=== PATIENT | female | born 2000 | race Caucasian/White ===

== ENCOUNTER 2022-06-30 15:12 | Emergency (ER) | payer MEDICAID, OTHER ==
[~2022-06-30] VITALS: Ht 149.9 cm; Wt 91.0 kg
[2022-06-30 15:18] VITALS: BP 113/68
[2022-06-30 16:05] LABS: BASOPHILS % 0.7 % (0.0-2.0); EOSINOPHILS % 1.4 % (0.0-5.0); HEMATOCRIT. 40.3 % (36.0-48.0); HEMOGLOBIN. 13.6 g/dL (12.0-16.0); LYMPHOCYTES % 33.4 % (20.0-50.0); MEAN CORPUSCULAR HEMOGLOBIN 29.9 pg (28.0-32.0); MEAN CORPUSCULAR VOLUME 88.3 fL (81.0-99.0); MEAN PLATELET VOLUME 8.8 fl (7.4-10.4); MONOCYTES % 7.5 % (2.0-8.0); PLATELET 274 x1000/uL (130-400); RED BLOOD CELL COUNT 4.56 mill/uL (4.2-5.4); RED CELL DISTRIBUTION WIDTH 13.3 % (11.6-14.6)
[2022-06-30 16:12] LABS: CHLORIDE 103 mEq/L (98-107)
[2022-06-30 16:29] LABS: HCG SCREEN POSITIVE
[2022-07-02] MEDS ORDERED: IBUP-2029 MT (02:22)
== END 2022-07-01 02:30 | disposition home or self-care (01) ==
LOC: ER 15:12
DX: O26.891 Other specified pregnancy related conditions, first trimester (principal); Z3A.01 Less than 8 weeks gestation of pregnancy
CPT/HCPCS: 36415; 76801; 80053; 84702; 84703; 85025; 86900; 99284

== ENCOUNTER 2022-07-01 20:29 | Emergency (ER) | payer MEDICAID ==
[~2022-07-01] VITALS: Ht 149.9 cm; Wt 200.0 kg
[2022-07-01 20:39] VITALS: BP 103/66
[2022-07-01 23:00] LABS: BASOPHILS % 0.6 % (0.0-2.0); HEMATOCRIT. 40.4 % (36.0-48.0); LYMPHOCYTES % 22.4 % (20.0-50.0); MEAN CORPUSCULAR HEMOGLOBIN 30.5 pg (28.0-32.0); MEAN PLATELET VOLUME 8.7 fl (7.4-10.4); PLATELET 295 x1000/uL (130-400); RED BLOOD CELL COUNT 4.59 mill/uL (4.2-5.4); RED CELL DISTRIBUTION WIDTH 13.3 % (11.6-14.6)
[2022-07-02] MEDS ORDERED: IBUP-2029 MT (02:22)
== END 2022-07-02 02:43 | disposition home or self-care (01) ==
LOC: ER 20:29
DX: O03.9 Complete or unspecified spontaneous abortion without complication (principal); Z3A.01 Less than 8 weeks gestation of pregnancy
CPT/HCPCS: 36415; 76801; 84702; 85025; 99284